=== PATIENT | female | born 1975 ===

== ENCOUNTER 2016-07-08 23:23 | Emergency (ER) | payer SELFPAY ==
[2016-07-08 23:35] VITALS: BP 141/84; PULSE 75; RESP 14; TEMP 98.2; O2SAT 100
[2016-07-09] MEDS ORDERED: Tmp-Smz 800 mg-160 mg DS Tab PO STA (00:04)
--- NOTE | 2016-07-09 00:10 | ED PDOC ---
HPI: Female Pain Time Seen by Provider: 07/08/16 23:41 Chief Complaint (Nursing): Female Genitourinary Chief Complaint (Provider): Pain with urination History Per: Patient History/Exam Limitations: no limitations Onset/Duration Of Symptoms: Days (3), Gradual Current Symptoms Are (Timing): Constant Severity: Moderate Pain Scale Rating Of: 7 Quality Of Discomfort: Burning Associated Symptoms: Urinary Symptoms. denies: Fever, Chills, Nausea, Vomiting , Diarrhea Alleviating Factors: None Additional Complaint(s): 40 year old female without medical history presents to ED with dysuria associated with suprapubic pain x 3 days that worsened just prior to arrival. Movement aggravates pain. No meds taken prior to arrival. No relieving factors. Patient denies vaginal discharge, abnormal vaginal bleeding, fever, chills, back pain, chest pain, sob, hematuria, diarrhea, vomiting, or nausea. PMD: None Abnormal Vaginal Bleeding: No Past Medical History Reviewed: Historical Data, Nursing Documentation, Vital Signs Vital Signs: Last Vital Signs Temp 98.2 F 07/08/16 23:33 Pulse 75 07/08/16 23:33 Resp 14 07/08/16 23:33 BP 141/84 07/08/16 23:33 Pulse Ox 100 07/08/16 23:33 - Family History Family History: States: No Known Family Hx - Home Medications Home Medications: Ambulatory Orders Medication Instructions Recorded Phenazopyridine HCl [Pyridium] 100 mg PO TID #6 tab 07/09/16 Sulfamethoxazole/Trimethoprim 1 tab PO BID #14 tab 07/09/16 [Bactrim DS 800 mg-160 mg] - Allergies Allergies/Adverse Reactions: Allergies Allergy/AdvReac Type Severity Reaction Status Date / Time No Known Allergies Allergy Verified 07/08/16 23:35 Review of Systems ROS Statement: Except As Marked, All Systems Reviewed And Found Negative ( except mentioned in HPI) Physical Exam - Reviewed Nursing Documentation Reviewed: Yes Vital Signs Reviewed: Yes - Physical Exam Appears: Positive for: Uncomfortable (due to pain) Head Exam: Positive for: ATRAUMATIC, NORMAL INSPECTION, NORMOCEPHALIC Skin: Positive for: Normal Color, Warm, Dry Eye Exam: Positive for: Normal appearance Neck: Positive for: Normal Cardiovascular/Chest: Positive for: Regular Rate, Rhythm Respiratory: Positive for: Normal Breath Sounds Gastrointestinal/Abdominal: Positive for: Bowel Sounds (present), Soft, Tenderness (suprapubic) Back: Positive for: Normal Inspection. Negative for: L CVA Tenderness, R CVA Tenderness Extremity: Positive for: Normal ROM Neurologic/Psych: Positive for: Alert, Oriented - Laboratory Results Urine POC: Negative Urine dip results: Positive for: Leukocyte Esterase, Blood - ECG O2 Sat by Pulse Oximetry: 100 Pulse Ox Interpretation: Normal - Progress ED Course And Treament: Time: 2016 Initial impression: 40 year old female with dysuria and suprapubic pain x 3 days , worsened prior to arrival. No fever, chills, back pain, hematuria. Vitals stable. Afebrile. UA/HPI consistent with UTI/cystitis. Plan: * Urine dipstick * Urine preg * Urine C&S * Pyridium 200mg STAT * Bactrim DS STAT * Reeval Time: 010 Patient re-evaluated, much improved symptoms. Patient no longer uncomfortable. Patient eager to go home. Mild tenderness to palpation of suprapubic area still present. Will discharge home with Pyridium/Bactrim DS. Follow up with [facility] this week. Disposition - Clinical Impression Clinical Impression: UTI (urinary tract infection) - Patient ED Disposition Is Patient to be Admitted: No Counseled Patient/Family Regarding: Studies Performed, Diagnosis, Need For Followup, Rx Given - Disposition Disposition: Routine/Home Disposition Time: 01:06 Condition: STABLE Prescriptions: Phenazopyridine HCl [Pyridium] 100 mg PO TID #6 tab Sulfamethoxazole/Trimethoprim [Bactrim DS 800 mg-160 mg] 1 tab PO BID #14 tab Instructions: Urinary Tract Infection in Women (ED) Print Language: PORTUGUESE
[2016-07-09] MEDS ORDERED: Tmp-Smz 800 mg-160 mg DS Tab ONE (00:21)
== END 2016-07-09 01:15 | disposition home or self-care (01) ==
LOC: H.ER 23:23
DX: N39.0 Urinary tract infection, site not specified (principal); N30.90 Cystitis, unspecified without hematuria